=== PATIENT | female | born 1955 | race Caucasian/White ===

== ENCOUNTER 2025-01-23 10:34 | Emergency (ER) | payer MEDICARE, MEDICAID ==
[~2025-01-23] VITALS: Ht 152.4 cm; Wt 58.0 kg
[2025-01-23 10:40] VITALS: O2SAT 98
[2025-01-23] MEDS ORDERED: IBUP-2028 MT (13:39)
[2025-01-23] MEDS ORDERED: TOPUD PO (13:39)
[2025-01-23 14:07] VITALS: BP 158/50; PULSE 62; RESP 18; TEMP 36.7; O2SAT 100
== END 2025-01-23 14:00 | disposition home or self-care (01) ==
LOC: ER 10:34
DX: R07.89 Other chest pain (principal); E11.9 Type 2 diabetes mellitus without complications; I10 Essential (primary) hypertension; Z98.890 Other specified postprocedural states
CPT/HCPCS: 71111; 99283